=== PATIENT | female | born 1940 | race Caucasian/White ===

== ENCOUNTER 2016-10-06 16:22 | Inpatient (IN) | payer OTHER, MEDICARE ==
[~2016-10-06] VITALS: Ht 170.2 cm; Wt 57.6 kg
[~2016-10-06 16:22] MED LIST: AMLO5TAB4 PO; CALC667C PO; CEL20 PO; DOXY-4 PO; EST1 PO; FOLI-43 PO; HYDR-1189 PO; LANS30CA10 PO; LORA1TAB PO; NEPH PO; SACC250C3 PO
[2016-10-06 16:26] VITALS: BP_SYST 158
[2016-10-06] MEDS ORDERED: MORPHINE 2 MG/ML INJ. SYRINGE IVP ONE (16:45)
[2016-10-06] MEDS ORDERED: ONDANSETRON HCL 4 MG/2 ML VIAL IVP ONE (16:45)
[2016-10-06 17:03] LABS: BASOPHILS % (AUTO) 0.4 % (0.0-2.0); EOSINOPHILS # (AUTO) 0.1 K/uL (0.0-0.4); EOSINOPHILS % (AUTO) 1.4 % (0.0-4.0); HEMATOCRIT 30.7 % (36-48); HEMOGLOBIN 10.6 g/dL (12.0-16.0); LYMPHOCYTES # (AUTO) 0.8 K/uL (1.0-5.5); LYMPHOCYTES % (AUTO) 9.8 % (20.5-51.5); MEAN CORPUSCULAR HEMOGLOBIN 32 pg (27-31); MEAN CORPUSCULAR HGB CONC 35 % (32-36); MEAN CORPUSCULAR VOLUME 94 fL (79.0-98.0); MONOCYTES # (AUTO) 0.7 K/uL (0.0-1.0); MONOCYTES % (AUTO) 8.9 % (1.7-9.3); NEUTROPHILS # (AUTO) 6.3 K/uL (1.8-7.7); NEUTROPHILS % (AUTO) 79.5 % (40.0-70.0); PLATELET COUNT (AUTO) 194 K/uL (130-430); RED BLOOD CELL COUNT(AUTO) 3.27 MIL/uL (4.2-6.2); RED CELL DISTRIBUTION WIDTH 13.4 % (9.0-15.0); WHITE BLOOD COUNT (AUTO) 7.9 K/uL (4.8-10.8)
[2016-10-06 17:11] LABS: PROTHROMBIN TIME 11.1 SECS (9.5-12.5)
[2016-10-06 17:21] LABS: ANION GAP 10 (5-15); CHLORIDE 101 mmol/L (98-107); POTASSIUM 4.2 mmol/L (3.5-5.1); SODIUM SERUM 141 mmol/L (136-145)
[2016-10-06 17:22] LABS: CALCIUM 9.6 mg/dL (8.4-11.0); GLUCOSE 150 mg/dL (70-99); UREA NITROGEN, BLOOD 36 mg/dL (8-21)
[2016-10-06 17:27] LABS: ALBUMIN 3.6 g/dL (3.4-4.8); ASPARTATE AMINOTRANSFERASE 7 U/L (10-37); LIPASE 358 U/L (73-393); TOTAL BILIRUBIN 0.5 mg/dL (0.0-1.0); TOTAL PROTEIN, SERUM 7.4 g/dL (6.4-8.3)
[2016-10-06 17:42] LABS: ALANINE AMINOTRANSFERASE 11 U/L (12-78)
[2016-10-06] MEDS ORDERED: LANS15CA5 PO (18:04)
[2016-10-06] MEDS ORDERED: LORA0.5T PO (18:04)
[2016-10-06] MEDS ORDERED: AMLO5TAB4 PO (18:04)
[2016-10-06] MEDS ORDERED: CALC667C4 PO (18:04)
[2016-10-06] MEDS ORDERED: BUDE6HFA INH (18:04)
[2016-10-06] MEDS ORDERED: FOLI-43 PO (18:04)
[2016-10-06] MEDS ORDERED: PROP10DR2 EACH EYE (18:04)
[2016-10-06] MEDS ORDERED: CEL20 PO (18:04)
[2016-10-06] MEDS ORDERED: CLI.05P TD (18:04)
[2016-10-06] MEDS ORDERED: VIT1TABL44 PO (18:04)
[2016-10-06] MEDS ORDERED: SACC250C3 PO (18:04)
[2016-10-06] MEDS ORDERED: HYDR-3110 PO (18:04)
[2016-10-06] MEDS ORDERED: ASPIRIN 81 MG TAB.CHEW PO ONE (18:15)
[2016-10-06] MEDS ORDERED: metroNIDAZOLE 500 mg/NS 100 ML IV ONE (18:15)
[2016-10-06 18:45] VITALS: BP_SYST 151
[2016-10-06] MEDS ORDERED: ONDANSETRON HCL 4 MG/2 ML VIAL IVP PRN (19:45)
[2016-10-06] MEDS ORDERED: HYDROcodone/ACETAMIN 5-325 MG TAB (NORCO/ VICODIN) PO PRN (19:45)
[2016-10-06] MEDS ORDERED: POTASSIUM CHLORIDE 10 MEQ TAB.PRT.SR PO PRN (19:45)
[2016-10-06] MEDS ORDERED: MAGNESIUM SULFATE 50 ML IV PRN (19:45)
[2016-10-06] MEDS ORDERED: DOCUSATE SODIUM 100 MG CAPSULE PO PRN (19:45)
[2016-10-06] MEDS ORDERED: ACETAMINOPHEN 325 MG TABLET PO PRN (19:45)
[2016-10-06] MEDS ORDERED: ZOLPIDEM TARTRATE 5 MG TABLET PO PRN (19:45)
[2016-10-06] MEDS ORDERED: MORPHINE 2 MG/ML INJ. SYRINGE IVP PRN (19:45)
[2016-10-06 20:00] VITALS: BP_SYST 159
[2016-10-06] MEDS: CALCIUM ACETATE 667 MG CAP PO SCH (21:00)
[2016-10-06] MEDS ORDERED: CALCIUM ACETATE 667 MG CAP PO SCH (21:00)
[2016-10-06] MEDS: HEPARIN SODIUM,PORCINE 5000 UNITS/ML VIAL SUBCUT SCH (21:00)
[2016-10-06 21:27] LABS: BILIRUBIN,URINE NEGATIVE (NEGATIVE); CLARITY/URINE SL HAZY (CLEAR); COLOR,URINE YELLOW (YELLOW); GLUCOSE,URINE 1+ (NEGATIVE); KETONES,URINE NEGATIVE (NEGATIVE); LEUKOCYTE ESTERASE ,URINE NEGATIVE (NEGATIVE); NITRITE, URINE NEGATIVE (NEGATIVE); PH,URINE 8.5 (5.0-8.0); PROTEIN URINE 2+ (NEGATIVE); UROBILINOGEN,URINE 0.2 (0.2-1.0)
[2016-10-06 21:31] LABS: BLOOD, URINE TRACE (NEGATIVE)
[2016-10-06 21:41] LABS: BACTERIA,URINE RARE /HPF (None Seen); RBC,URINE 0-3 /HPF (0-3); WBC,URINE NONE SEEN /HPF (0-3)
[2016-10-07] VITALS: BP_SYST 135
[2016-10-07 04:00] VITALS: BP_SYST 128
[2016-10-07 06:45] LABS: ANION GAP 9 (5-15); CALCIUM 9.6 mg/dL (8.4-11.0); CHLORIDE 103 mmol/L (98-107); GLUCOSE 92 mg/dL (70-99); POTASSIUM 4.6 mmol/L (3.5-5.1); SODIUM SERUM 144 mmol/L (136-145); UREA NITROGEN, BLOOD 37 mg/dL (8-21)
[2016-10-07 06:49] LABS: BASOPHILS % (AUTO) 0.5 % (0.0-2.0); EOSINOPHILS # (AUTO) 0.2 K/uL (0.0-0.4); EOSINOPHILS % (AUTO) 4.2 % (0.0-4.0); HEMATOCRIT 28.3 % (36-48); HEMOGLOBIN 8.9 g/dL (12.0-16.0); LYMPHOCYTES # (AUTO) 0.9 K/uL (1.0-5.5); LYMPHOCYTES % (AUTO) 16.5 % (20.5-51.5); MEAN CORPUSCULAR HEMOGLOBIN 30 pg (27-31); MEAN CORPUSCULAR HGB CONC 31 % (32-36); MEAN CORPUSCULAR VOLUME 96 fL (79.0-98.0); MONOCYTES # (AUTO) 0.5 K/uL (0.0-1.0); MONOCYTES % (AUTO) 9.1 % (1.7-9.3); NEUTROPHILS % (AUTO) 69.7 % (40.0-70.0); PLATELET COUNT (AUTO) 152 K/uL (130-430); RED BLOOD CELL COUNT(AUTO) 2.96 MIL/uL (4.2-6.2); RED CELL DISTRIBUTION WIDTH 13.6 % (9.0-15.0); WHITE BLOOD COUNT (AUTO) 5.6 K/uL (4.8-10.8)
[2016-10-07 07:11] LABS: CREATININE 7.54 mg/dL (0.55-1.30)
[2016-10-07 08:10] VITALS: BP_SYST 147
[2016-10-07] MEDS: HEPARIN SODIUM,PORCINE 5000 UNITS/ML VIAL SUBCUT SCH ×2 (09:00→21:00)
[2016-10-07] MEDS: LORazepam 2 MG/ML VIAL IVP PRN (09:03)
[2016-10-07] MEDS: FLUTICASONE/VILANTEROL 1 EACH BLST.W.DEV INH SCH (09:04)
[2016-10-07] MEDS: CITALOPRAM HYDROBROMIDE 20 MG TABLET PO SCH (09:04)
[2016-10-07] MEDS: amLODIPine BESYLATE 5 MG TABLET PO SCH (09:04)
[2016-10-07] MEDS: CALCIUM ACETATE 667 MG CAP PO SCH ×3 (09:05→21:00)
[2016-10-07 13:25] VITALS: BP_SYST 119
[2016-10-07 15:29] VITALS: BP_SYST 136
[2016-10-07 20:19] VITALS: BP_SYST 135
[2016-10-08 06:35] LABS: BASOPHILS % (AUTO) 0.7 % (0.0-2.0); EOSINOPHILS # (AUTO) 0.2 K/uL (0.0-0.4); EOSINOPHILS % (AUTO) 4.1 % (0.0-4.0); HEMOGLOBIN 9.4 g/dL (12.0-16.0); LYMPHOCYTES % (AUTO) 17.8 % (20.5-51.5); MEAN CORPUSCULAR HEMOGLOBIN 31 pg (27-31); MEAN CORPUSCULAR HGB CONC 33 % (32-36); MEAN CORPUSCULAR VOLUME 96 fL (79.0-98.0); MONOCYTES # (AUTO) 0.5 K/uL (0.0-1.0); MONOCYTES % (AUTO) 8.4 % (1.7-9.3); NEUTROPHILS # (AUTO) 3.8 K/uL (1.8-7.7); PLATELET COUNT (AUTO) 162 K/uL (130-430); RED BLOOD CELL COUNT(AUTO) 3.03 MIL/uL (4.2-6.2); RED CELL DISTRIBUTION WIDTH 13.2 % (9.0-15.0); WHITE BLOOD COUNT (AUTO) 5.5 K/uL (4.8-10.8)
[2016-10-08 07:17] LABS: ANION GAP 7 (5-15); CALCIUM 10.2 mg/dL (8.4-11.0); CHLORIDE 100 mmol/L (98-107); CREATININE 6.38 mg/dL (0.55-1.30); GLUCOSE 87 mg/dL (70-99); POTASSIUM 4.5 mmol/L (3.5-5.1); SODIUM SERUM 139 mmol/L (136-145); UREA NITROGEN, BLOOD 32 mg/dL (8-21)
[2016-10-08 08:00] VITALS: BP_SYST 146
[2016-10-08] MEDS: CITALOPRAM HYDROBROMIDE 20 MG TABLET PO SCH (08:18)
[2016-10-08] MEDS: CALCIUM ACETATE 667 MG CAP PO SCH (08:18)
[2016-10-08] MEDS: amLODIPine BESYLATE 5 MG TABLET PO SCH (08:19)
[2016-10-08] MEDS: HEPARIN SODIUM,PORCINE 5000 UNITS/ML VIAL SUBCUT SCH (08:20)
[2016-10-08] MEDS: FLUTICASONE/VILANTEROL 1 EACH BLST.W.DEV INH SCH (08:20)
[2016-10-08] MEDS: LORazepam 2 MG/ML VIAL IVP PRN (08:25)
[2016-10-08 10:23] VITALS: BP_SYST 146
[2016-10-08 12:50] VITALS: BP_SYST 123
== END 2016-10-08 13:48 | disposition home or self-care (01) | DRG 682 ==
LOC: SED 16:22 → STU 18:13
PROVIDERS: ADMIT General Practice; ATTEND General Practice
PROC: 5A1D00Z (ICD-10-PCS; principal; 2016-10-07)
DX: I12.0 Hypertensive chronic kidney disease with stage 5 chronic kidney disease or end stage renal disease (principal); N18.6 End stage renal disease; M94.0 Chondrocostal junction syndrome [Tietze]; F32.9 Major depressive disorder, single episode, unspecified; J44.9 Chronic obstructive pulmonary disease, unspecified; K30 Functional dyspepsia; K57.90 Diverticulosis of intestine, part unspecified, without perforation or abscess without bleeding; D63.1 Anemia in chronic kidney disease; G89.29 Other chronic pain; N25.0 Renal osteodystrophy; M54.9 Dorsalgia, unspecified; Z99.2 Dependence on renal dialysis; Z87.891 Personal history of nicotine dependence; Z85.828 Personal history of other malignant neoplasm of skin; Z88.1 Allergy status to other antibiotic agents; Z85.3 Personal history of malignant neoplasm of breast; Z90.49 Acquired absence of other specified parts of digestive tract; Z90.710 Acquired absence of both cervix and uterus; Z88.8 Allergy status to other drugs, medicaments and biological substances; Z79.899 Other long term (current) drug therapy; Z83.6 Family history of other diseases of the respiratory system; Z80.9 Family history of malignant neoplasm, unspecified
CPT/HCPCS: 36415; 71010; 80048; 80053; 81000-TC; 83605; 83690-TC; 83735-TC; 84484; 85025; 85610-TC; 85730-TC; 87081; 90935; 93005; 93306; 96374; 96375; 97110-GP; 97116-GP; 97530-GP; 99285; J1644; J2060; J2270; J2405; J7030

== ENCOUNTER 2018-10-23 09:41 | Emergency (ER) | payer OTHER, MEDICARE ==
[~2018-10-23] VITALS: Ht 170.2 cm; Wt 54.4 kg
[~2018-10-23 09:41] MED LIST changes: +BUDE6HFA INH; +CALC667C4 PO; +CLI.05P TD; -DOXY-4 PO; +DOXY100C PO; +HYDR-3110 PO; +LANS15CA14 PO; -LANS30CA10 PO; +LANS30CA53 PO; +LORA0.5T PO; +PROP10DR2 EACH EYE; +VIT1TABL44 PO
[2018-10-23 09:45] VITALS: BP_SYST 152
[2018-10-23] MEDS ORDERED: TRANEXAMIC ACID 1,000 MG/10 ML VIAL IV ONE (10:00)
[2018-10-23 11:00] VITALS: BP_SYST 152
== END 2018-10-23 11:00 | disposition home or self-care (01) ==
LOC: SED 09:41
DX: S01.532A Puncture wound without foreign body of oral cavity, initial encounter (principal); I10 Essential (primary) hypertension; Z88.1 Allergy status to other antibiotic agents; Z88.8 Allergy status to other drugs, medicaments and biological substances; Z85.3 Personal history of malignant neoplasm of breast; Z90.710 Acquired absence of both cervix and uterus; X58.XXXA Exposure to other specified factors, initial encounter; Y93.89 Activity, other specified; Y92.89 Other specified places as the place of occurrence of the external cause; Y99.8 Other external cause status; Z79.899 Other long term (current) drug therapy
CPT/HCPCS: 96374; 99283; J3490

== ENCOUNTER 2019-02-07 06:04 | Emergency (ER) | payer OTHER, MEDICARE ==
[~2019-02-07] VITALS: Ht 170.2 cm; Wt 55.3 kg
[2019-02-07 06:08] VITALS: BP_SYST 97
--- NOTE | 2019-02-07 06:08 | NUR ---
Placed in room 2 . Placed on hall monitor, blood pressure machine and pulse oximeter. To gown for exam. Side rails up. Report given to DOUGLAS EISENBERG.
[2019-02-07] MEDS ORDERED: DIPH-TET-PERTUS Vaccine 0.5 ML VIAL (ADACEL) I.M. ONE (07:00)
[2019-02-07] MEDS ORDERED: MORPHINE 2 MG/ML INJ. SYRINGE IM ONE (07:00)
--- NOTE | 2019-02-07 07:20 | NUR ---
Pt presents to ED c/o head injury to R side of head this AM s/p mech fall w/o KO per report.Pt has LAC noted bleeding controlled.Pt reports MADSEN 12/24 denies N/V. Pt has no acute distress noted at this time.
--- NOTE | 2019-02-07 07:24 | NUR ---
ER Dr. Shook at bedside examining patient.
[2019-02-07 07:28] LABS: BASOPHILS # (AUTO) 0.1 K/uL (0.0-0.2); BASOPHILS % (AUTO) 1.2 % (0.0-2.0); EOSINOPHILS # (AUTO) 0.3 K/uL (0.0-0.4); EOSINOPHILS % (AUTO) 5.4 % (0.0-4.0); HEMATOCRIT 36.5 % (36-48); HEMOGLOBIN 12.1 g/dL (12.0-16.0); LYMPHOCYTES # (AUTO) 1.1 K/uL (1.0-5.5); LYMPHOCYTES % (AUTO) 17.7 % (20.5-51.5); MEAN CORPUSCULAR HEMOGLOBIN 34 pg (27-31); MEAN CORPUSCULAR HGB CONC 33 % (32-36); MEAN CORPUSCULAR VOLUME 103 fL (79.0-98.0); MONOCYTES # (AUTO) 0.6 K/uL (0.0-1.0); MONOCYTES % (AUTO) 9.6 % (1.7-9.3); NEUTROPHILS # (AUTO) 4.2 K/uL (1.8-7.7); NEUTROPHILS % (AUTO) 66.1 % (40.0-70.0); PLATELET COUNT (AUTO) 204 K/uL (130-430); RED BLOOD CELL COUNT(AUTO) 3.55 MIL/uL (4.2-6.2); WHITE BLOOD COUNT (AUTO) 6.4 K/uL (4.8-10.8)
--- NOTE | 2019-02-07 07:37 | NUR ---
Patient transported to radiology via gurney, accompanied by rad staff.
[2019-02-07 07:38] LABS: ANION GAP 10 (5-15); CALCIUM 8.7 mg/dL (8.4-11.0); CHLORIDE 99 mmol/L (98-107); CREATININE 6.24 mg/dL (0.55-1.30); GLUCOSE 92 mg/dL (70-99); POTASSIUM 4.1 mmol/L (3.5-5.1); SODIUM SERUM 140 mmol/L (136-145); UREA NITROGEN, BLOOD 38 mg/dL (8-21)
[2019-02-07 07:41] LABS: PROTHROMBIN TIME 10.5 SECS (9.5-12.5)
[2019-02-07 07:43] LABS: ALANINE AMINOTRANSFERASE 17 U/L (12-78); ALBUMIN 3.5 g/dL (3.4-4.8); ASPARTATE AMINOTRANSFERASE 9 U/L (10-37); TOTAL BILIRUBIN 0.5 mg/dL (0.0-1.0)
--- NOTE | 2019-02-07 07:45 | NUR ---
Returned from radiology, back to [facility].
--- NOTE | 2019-02-07 08:10 | NUR ---
Pt received wound repair from Sreedhar Harris. Pt tolerated well.
[2019-02-07 09:00] VITALS: BP_SYST 100
--- NOTE | 2019-02-07 09:00 | NUR ---
Patient given written and verbal discharge instructions and verbalizes understanding. ER MD discussed with patient the results and treatment provided. Patient in stable condition. ID arm band removed. NO Rx of given. Patient educated on pain management and to follow up with PMD. Pain Scale 0. Opportunity for questions provided and answered. Medication side effect fact sheet provided.
== END 2019-02-07 09:00 | disposition home or self-care (01) ==
LOC: SED 06:04
DX: S01.01XA Laceration without foreign body of scalp, initial encounter (principal); I10 Essential (primary) hypertension; Z88.1 Allergy status to other antibiotic agents; Z88.8 Allergy status to other drugs, medicaments and biological substances; Z79.899 Other long term (current) drug therapy; Z85.3 Personal history of malignant neoplasm of breast; Z99.2 Dependence on renal dialysis; W06.XXXA Fall from bed, initial encounter; Y93.89 Activity, other specified; Y92.89 Other specified places as the place of occurrence of the external cause; Y99.8 Other external cause status
CPT/HCPCS: 12002; 36415; 70450; 72125; 80053; 85025; 85610; 90471; 90715; 96372; 99284; J2270

== ENCOUNTER 2019-02-14 12:47 | Emergency (ER) | payer OTHER, MEDICARE ==
[~2019-02-14] VITALS: Ht 170.2 cm; Wt 60.8 kg
[2019-02-14 12:52] VITALS: BP_SYST 128
[2019-02-14 13:35] VITALS: BP_SYST 128
== END 2019-02-14 13:35 | disposition home or self-care (01) ==
LOC: SED 12:47
DX: S01.81XD Laceration without foreign body of other part of head, subsequent encounter (principal); I10 Essential (primary) hypertension; Z85.3 Personal history of malignant neoplasm of breast; Z99.2 Dependence on renal dialysis; Z88.1 Allergy status to other antibiotic agents; Z88.8 Allergy status to other drugs, medicaments and biological substances; Z79.899 Other long term (current) drug therapy; W06.XXXD Fall from bed, subsequent encounter
CPT/HCPCS: 99281

== ENCOUNTER 2019-09-04 12:28 | Emergency (ER) | payer OTHER, MEDICARE ==
[~2019-09-04] VITALS: Ht 170.2 cm; Wt 55.3 kg
--- NOTE | 2019-09-04 12:55 | NUR ---
PATIENT TO ER #7
[2019-09-04 12:57] VITALS: BP_SYST 152
--- NOTE | 2019-09-04 13:03 | NUR ---
PATIENT PRESENTS TO THE ER WITH 24 HOUR HX OF DYSPNEA AND LEFT SIDED BACK PAIN; NO TRAUMA, NO OTHER REMARKABLE S/S; PATIENT PLACED ON RELAY TESTER AND SAO2
--- NOTE | 2019-09-04 13:10 | NUR ---
ER at bedside examining patient.
[2019-09-04 13:44] LABS: BASOPHILS % (AUTO) 0.8 % (0.0-2.0); EOSINOPHILS # (AUTO) 0.2 K/uL (0.0-0.4); EOSINOPHILS % (AUTO) 3.5 % (0.0-4.0); HEMATOCRIT 30.8 % (36-48); HEMOGLOBIN 10.2 g/dL (12.0-16.0); LYMPHOCYTES # (AUTO) 0.7 K/uL (1.0-5.5); LYMPHOCYTES % (AUTO) 13.8 % (20.5-51.5); MEAN CORPUSCULAR HEMOGLOBIN 34 pg (27-31); MEAN CORPUSCULAR HGB CONC 33 % (32-36); MEAN CORPUSCULAR VOLUME 103 fL (79.0-98.0); MONOCYTES # (AUTO) 0.4 K/uL (0.0-1.0); MONOCYTES % (AUTO) 7.3 % (1.7-9.3); NEUTROPHILS # (AUTO) 3.9 K/uL (1.8-7.7); NEUTROPHILS % (AUTO) 74.6 % (40.0-70.0); PLATELET COUNT (AUTO) 167 K/uL (130-430); RED BLOOD CELL COUNT(AUTO) 2.99 MIL/uL (4.2-6.2); RED CELL DISTRIBUTION WIDTH 13.3 % (9.0-15.0); WHITE BLOOD COUNT (AUTO) 5.2 K/uL (4.8-10.8)
[2019-09-04 14:00] LABS: ANION GAP 15 (5-15); CALCIUM 8.4 mg/dL (8.4-11.0); CHLORIDE 98 mmol/L (98-107); GLUCOSE 85 mg/dL (70-99); POTASSIUM 4.8 mmol/L (3.5-5.1); SODIUM SERUM 138 mmol/L (136-145); UREA NITROGEN, BLOOD 44 mg/dL (8-21)
[2019-09-04 14:17] LABS: ALANINE AMINOTRANSFERASE 13 U/L (12-78); ALBUMIN 3.7 g/dL (3.4-4.8); ASPARTATE AMINOTRANSFERASE 6 U/L (10-37); TOTAL BILIRUBIN 0.5 mg/dL (0.0-1.0)
[2019-09-04 14:19] LABS: CREATININE 8.93 mg/dL (0.55-1.30)
--- NOTE | 2019-09-04 14:30 | NUR ---
RESTING IN BED, FRIEND AT BEDSIDE NO C/O AT THIS TIME.
[2019-09-04] MEDS ORDERED: AZITHROMYCIN 250 MG TABLET PO ONE (15:30)
--- NOTE | 2019-09-04 15:30 | NUR ---
NO C/O, PT COMFORTABLE IN [facility]
--- NOTE | 2019-09-04 16:32 | NUR ---
Patient given written and verbal discharge instructions and verbalizes understanding. ER MD discussed with patient the results and treatment provided. Patient in stable condition. ID arm band removed. IV catheter removed intact and dressing applied, no active bleeding. Rx of LEVAQUIN given. Patient educated on pain management and to follow up with PMD. Pain Scale 3. Opportunity for questions provided and answered. Medication side effect fact sheet provided.
[2019-09-04 16:48] VITALS: BP_SYST 152
== END 2019-09-04 16:32 | disposition home or self-care (01) ==
LOC: SED 12:28
DX: I12.9 Hypertensive chronic kidney disease with stage 1 through stage 4 chronic kidney disease, or unspecified chronic kidney disease (principal); N18.9 Chronic kidney disease, unspecified; Z85.3 Personal history of malignant neoplasm of breast; Z88.1 Allergy status to other antibiotic agents; Z88.8 Allergy status to other drugs, medicaments and biological substances; Z79.899 Other long term (current) drug therapy
CPT/HCPCS: 36415; 36600; 71045; 80053; 82803; 83605; 83880; 84484; 85025; 87040; 93005; 99285; Q0144

== ENCOUNTER 2019-11-07 13:26 | Emergency (ER) | payer OTHER, MEDICARE, SELFPAY ==
[~2019-11-07] VITALS: Ht 170.2 cm; Wt 54.4 kg
[2019-11-07 13:36] VITALS: BP_SYST 148
== END 2019-11-07 14:32 | disposition home or self-care (01) ==
LOC: EEVIPCON 13:26 → SED 13:26
DX: M54.89 Other dorsalgia (principal); I10 Essential (primary) hypertension; N28.9 Disorder of kidney and ureter, unspecified; Z79.899 Other long term (current) drug therapy; Z20.828 Contact with and (suspected) exposure to other viral communicable diseases
CPT/HCPCS: 71045; 99284; U0002

== ENCOUNTER 2020-01-29 13:11 | Emergency (ER) | payer OTHER, MEDICARE ==
[~2020-01-29] VITALS: Ht 170.2 cm; Wt 54.4 kg
[2020-01-29 13:34] VITALS: BP_SYST 148
--- NOTE | 2020-01-29 13:34 | NUR ---
Patient triaged and placed in waiting room. VSS and patient appears in no acute distress at this time. Accompanied by self, awaiting available bed, and MD notified of need for MSE.
--- NOTE | 2020-01-29 14:30 | NUR ---
Pt told admitting staff that she wants to go home. Ambulatory with steady gait out the front door.
== END 2020-01-29 14:30 | disposition left against medical advice (07) ==
LOC: SED 13:11
DX: R53.1 Weakness (principal); Z53.21 Procedure and treatment not carried out due to patient leaving prior to being seen by health care provider

== ENCOUNTER 2020-06-30 09:30 | Emergency (ER) | payer OTHER, MEDICARE ==
[~2020-06-30] VITALS: Ht 170.2 cm; Wt 53.1 kg
[~2020-06-30 09:30] MED LIST changes: -AMLO5TAB4 PO; -BUDE6HFA INH; -CALC667C PO; +CARV3.1246 PO; -CEL20 PO; -DOXY100C PO; -EST1 PO; +GABA-529 PO; -HYDR-3110 PO; -LANS15CA14 PO; -LANS30CA53 PO; +LIP40 PO; +NIFE60TA83 PO; -PROP10DR2 EACH EYE; +PROP1DRO4 OP; -SACC250C3 PO; +TRAM100T27 PO
[2020-06-30 09:37] VITALS: BP_SYST 130
--- NOTE | 2020-06-30 09:46 | NUR ---
Patient triaged and placed in waiting room. VSS and patient appears in no acute distress at this time. Awaiting available bed, and MD notified of need for MSE.
--- NOTE | 2020-06-30 09:47 | NUR ---
Patient came from home for evaluation of left index finger. She states that she has a cyst on the cuticle for the past 2 months that has been getting progressively worse. She presents with red,swollen finger with pain.
--- NOTE | 2020-06-30 10:00 | NUR ---
ER Dr. Serrano in waiting room examining patient.
[2020-06-30 10:15] VITALS: BP_SYST 130
--- NOTE | 2020-06-30 10:15 | NUR ---
Patient given written and verbal discharge instructions and verbalizes understanding. ER MD discussed with patient the results and treatment provided. Patient in stable condition. ID arm band removed. Rx of clindamycin given. Patient educated on pain management and to follow up with PMD. Pain Scale 10/10, MD is aware. Opportunity for questions provided and answered. Medication side effect fact sheet provided.
== END 2020-06-30 10:15 | disposition home or self-care (01) ==
LOC: SED 09:30
DX: L03.012 Cellulitis of left finger (principal); I10 Essential (primary) hypertension; N28.9 Disorder of kidney and ureter, unspecified; Z79.899 Other long term (current) drug therapy; Z79.4 Long term (current) use of insulin; Z88.1 Allergy status to other antibiotic agents
CPT/HCPCS: 99283

== ENCOUNTER 2021-01-26 18:31 | Inpatient (IN) | payer OTHER, MEDICARE, SELFPAY ==
[~2021-01-26] VITALS: Ht 170.2 cm; Wt 51.8 kg
[2021-01-26 18:31] VITALS: BP_SYST 118
[~2021-01-26 18:31] MED LIST changes: -HYDR-1189 PO; +HYDR-3919 PO
--- NOTE | 2021-01-26 18:37 | NUR ---
Placed in room 03 . Placed on monitoring engineer, blood pressure machine and pulse oximeter. To gown for exam. Side rails up.
--- NOTE | 2021-01-26 18:40 | NUR ---
Pt came to ER via BLS ambulance for generalized weakness pt states she has been shaky. Pt was able to ambulate to [facility] with standby assist, AO4, VSS, awaiting .
--- NOTE | 2021-01-26 18:48 | NUR ---
# 20 gauge angiocath placed to RAC. Use of asceptic technique. Opsite placed over site. Blood return noted. Blood for lab drawn from site. Flushed with 10 cc of normal saline. No evidence of infiltration noted. Patient tolerated well.
--- NOTE | 2021-01-26 19:02 | NUR ---
DR. ROBERTO AT BEDSIDE FOR EVALUATION.
[2021-01-26 19:15] LABS: BASOPHILS # (AUTO) 0.1 K/uL (0.0-0.2); EOSINOPHILS # (AUTO) 0.3 K/uL (0.0-0.4); EOSINOPHILS % (AUTO) 4.1 % (0.0-4.0); HEMATOCRIT 33.3 % (36-48); HEMOGLOBIN 10.7 g/dL (12.0-16.0); LYMPHOCYTES # (AUTO) 1.5 K/uL (1.0-5.5); LYMPHOCYTES % (AUTO) 18.7 % (20.5-51.5); MEAN CORPUSCULAR HEMOGLOBIN 33 pg (27-31); MEAN CORPUSCULAR HGB CONC 32 % (32-36); MEAN CORPUSCULAR VOLUME 102 fL (79.0-98.0); MONOCYTES # (AUTO) 0.4 K/uL (0.0-1.0); MONOCYTES % (AUTO) 4.5 % (1.7-9.3); NEUTROPHILS # (AUTO) 5.7 K/uL (1.8-7.7); NEUTROPHILS % (AUTO) 71.7 % (40.0-70.0); PLATELET COUNT (AUTO) 166 K/uL (130-430); RED BLOOD CELL COUNT(AUTO) 3.26 MIL/uL (4.2-6.2); RED CELL DISTRIBUTION WIDTH 14.7 % (9.0-15.0)
--- NOTE | 2021-01-26 19:15 | NUR ---
PORTABLE XRAY DONE AT THIS TIME.
[2021-01-26 19:18] LABS: ANION GAP 15 (5-15); CHLORIDE 102 mmol/L (98-107); GLUCOSE 139 mg/dL (70-99); SODIUM SERUM 146 mmol/L (136-145); UREA NITROGEN, BLOOD 66 mg/dL (8-21)
[2021-01-26 19:22] LABS: CALCIUM 5.2 mg/dL (8.4-11.0)
[2021-01-26 19:23] LABS: CREATININE 11.04 mg/dL (0.55-1.30); POTASSIUM 5.7 mmol/L (3.5-5.1)
[2021-01-26 19:26] LABS: ALANINE AMINOTRANSFERASE 13 U/L (12-78); TOTAL BILIRUBIN 0.6 mg/dL (0.0-1.0)
[2021-01-26 19:39] LABS: ASPARTATE AMINOTRANSFERASE 7 U/L (10-37)
[2021-01-26 19:40] LABS: PROTHROMBIN TIME 10.7 SECS (9.5-12.5)
[2021-01-26] MEDS ORDERED: CALCIUM GLUCONATE 1 GM/10 ML VIAL IVP ONE (20:30)
--- NOTE | 2021-01-26 21:23 | NUR ---
Patient will be admitted to care of DR. MALDONADO. Admitted to TELE unit. ROOM PENDING COVID TEST PENDING. Belongings list completed. Complete and up to date summary report printed. SBAR report to be given at bedside with opportunity for questions.
[2021-01-26] MEDS ORDERED: POTASSIUM CHLORIDE 20 MEQ TAB.PRT.SR PO PRN (21:45)
[2021-01-26] MEDS ORDERED: ONDANSETRON HCL 4 MG/2 ML VIAL IVP PRN (21:45)
[2021-01-26] MEDS ORDERED: MAGNESIUM SULFATE 50 ML IV PRN (21:45)
[2021-01-26] MEDS ORDERED: DOCUSATE SODIUM 100 MG CAPSULE PO PRN (21:45)
[2021-01-26] MEDS ORDERED: ACETAMINOPHEN 325 MG TABLET PO PRN (21:45)
[2021-01-26] MEDS ORDERED: LORazepam 2 MG/ML VIAL IVP PRN (21:45)
[2021-01-26] MEDS ORDERED: MUPIROCIN 2% TOPICAL OINTMENT 22 GM NS PRN (21:45)
[2021-01-26] MEDS ORDERED: ZOLPIDEM TARTRATE 5 MG TABLET PO PRN (21:45)
[2021-01-26] MEDS ORDERED: MORPHINE 2 MG/ML INJ. SYRINGE IVP PRN (21:45)
--- NOTE | 2021-01-26 21:52 | NUR ---
Patient's code status is FULL CODE paperwork completed and placed in chart.
[2021-01-26] MEDS ORDERED: ASA81 PO (22:10)
--- NOTE | 2021-01-26 22:11 | NUR ---
Medication reconciliation completed with information provided by PATIENT. Any prior medication reconciliation on file was reviewed and corrected.
--- NOTE | 2021-01-26 22:11 | NUR ---
Transfer to TELE via ACLS protocol. Licensed nurse present. IV present no signs or symptoms of infiltration.
--- NOTE | 2021-01-26 22:24 | NUR ---
ADMISSION: The patient, CANDIDA VENTURA, 80 y/o, F admitted by MARTY MALDONADO DO, was given written information regarding hospital policies, unit procedures and contact persons. Valuables were checked and pt was oriented to her room and surrounding.
[2021-01-26 22:45] VITALS: BP_SYST 119
[2021-01-27 00:02] VITALS: BP_SYST 132
--- NOTE | 2021-01-27 05:48 | NUR ---
Consultation Paged Reason for Consultation: Renal Failure Was consult called: Y Person who was notified: Arely Consulting Physician: Dr. Noonan (Dr. Ventura is business operations specialist) Ordering Physician: Dr. Patel
--- NOTE | 2021-01-27 06:25 | NUR ---
DR. PARK CALLED TO GIVE HEMODIALYSIS ORDER. HE STATED HE WILL CALL [facility] HIMSELF.
--- NOTE | 2021-01-27 06:45 | NUR ---
Nutrition Update Rickie Scale 17 noted. Pt admitted for Renal failure Diet: renal standard BMI: 18.4 kg/m2 RD to follow per nutrition care standards.
[2021-01-27 07:13] LABS: BASOPHILS % (AUTO) 0.9 % (0.0-2.0); EOSINOPHILS # (AUTO) 0.2 K/uL (0.0-0.4); EOSINOPHILS % (AUTO) 3.9 % (0.0-4.0); HEMATOCRIT 29.6 % (36-48); HEMOGLOBIN 9.8 g/dL (12.0-16.0); LYMPHOCYTES # (AUTO) 1.5 K/uL (1.0-5.5); LYMPHOCYTES % (AUTO) 28.7 % (20.5-51.5); MEAN CORPUSCULAR HEMOGLOBIN 33 pg (27-31); MEAN CORPUSCULAR HGB CONC 33 % (32-36); MEAN CORPUSCULAR VOLUME 100 fL (79.0-98.0); MONOCYTES # (AUTO) 0.3 K/uL (0.0-1.0); MONOCYTES % (AUTO) 6.1 % (1.7-9.3); NEUTROPHILS # (AUTO) 3.2 K/uL (1.8-7.7); NEUTROPHILS % (AUTO) 60.4 % (40.0-70.0); PLATELET COUNT (AUTO) 114 K/uL (130-430); RED BLOOD CELL COUNT(AUTO) 2.95 MIL/uL (4.2-6.2); RED CELL DISTRIBUTION WIDTH 14.5 % (9.0-15.0)
[2021-01-27 07:43] LABS: ANION GAP 15 (5-15); CHLORIDE 103 mmol/L (98-107); GLUCOSE 77 mg/dL (70-99); SODIUM SERUM 145 mmol/L (136-145); UREA NITROGEN, BLOOD 74 mg/dL (8-21)
--- NOTE | 2021-01-27 07:49 | NUR ---
rn opening note patient is awake and alert sitting up in bed eating breakfast.Report was endorsed by night nurse. patient educated svp marketing & communications at [employer], call light is with patient. patient shows no signs of any distress, breathing is equal and non labored. patient is close to nurses station. no other needs at this time
[2021-01-27 08:26] LABS: CALCIUM 5.2 mg/dL (8.4-11.0); CREATININE 11.65 mg/dL (0.55-1.30); POTASSIUM 6.6 mmol/L (3.5-5.1)
[2021-01-27 08:30] VITALS: BP_SYST 136
--- NOTE | 2021-01-27 08:51 | NUR ---
critical lab spoke with received orders to hemodialyzed stat. called supervised to call nurse to inform of stat order. also informed of critical labs
[2021-01-27] MEDS: CARVEDILOL 3.125 MG TABLET (COREG) PO SCH ×2 (09:00→22:37)
[2021-01-27] MEDS ORDERED: ESTRADIOL 0.05 MG/24 HR TD SCH (09:00)
[2021-01-27] MEDS: NIFEdipine 30 MG TAB.ER.24 PO SCH (09:00)
[2021-01-27] MEDS: HEPARIN SODIUM,PORCINE 5,000 UNITS/ML VIAL SUBCUT SCH ×2 (09:00→21:00)
[2021-01-27] MEDS: LORazepam 1 MG TABLET PO SCH (09:06)
[2021-01-27] MEDS: FOLIC ACID 1 MG TABLET PO SCH (09:06)
[2021-01-27] MEDS: NEPHROVITE, (FOLIC ACID/VITAMIN B COMP W-C 1 TAB) PO SCH (09:09)
[2021-01-27] MEDS: GABAPENTIN 100 MG CAPSULE PO SCH ×2 (09:09→22:36)
[2021-01-27] MEDS: CALCIUM ACETATE 667 MG CAP PO SCH ×3 (09:09→22:36)
[2021-01-27 09:52] LABS: WHITE BLOOD COUNT (AUTO) 5.3 K/uL (4.8-10.8)
--- NOTE | 2021-01-27 11:46 | NUR ---
Dietitian Recommendations *Recommend: continue Renal standard diet as ordered. *Recommend: add Nepro BID, Marc BID, Banatrol TID. Please see Nutritional Assessment for details VENTURA, RD
[2021-01-27 12:07] VITALS: BP_SYST 159
--- NOTE | 2021-01-27 12:18 | NUR ---
PAIN MEDICATION PATIENT IS COMPLAINS OF PAIN IN RIGHT LEG. PATIENT MEDICATED FOR PAIN. PATIENT GIVEN LUNCH AND IS EATING WHILE GETTING HER HEMODIALYSIS. PATIENT HAS ALL SAFETY PRECAUTIONS IN PLACE. CALL LIGHT IS WITH HER EDUCATED TO USE FOR ASSISTANCE. PATIENT HAS NO OTHER NEEDS AT THIS TIME.
[2021-01-27] MEDS ORDERED: CALCIUM GLUCONATE 1 GM in NS 100 ML IV ONE (14:00)
--- NOTE | 2021-01-27 14:15 | NUR ---
WOUND EVALUATION: Wound Consult received from Dr. Patel. Thank you, Dr. Patel, for the consult. Patient received in a Basin Bed with an Isoflex LIONEL mattress with low air loss therapy initiated, awake, alert, and oriented. Patient is unable to turn in bed independently. Rickie Score is a 17. Past Medical History: Lumbar Spine DJD, Hypertension, vitamin deficiency, Dyslipidemia, quit smoking over 30 years ago, had 2 Laminectomies, Hysterectomy, Left Upper Extremity surgery, left arm dialysis access, Left Breast Cancer, Neuropathy, Hypertension, End-Stage Renal Disease (Dialysis Mon/Weds/Fri),Thyroid Disease, abdominal related surgery. She is scheduled to have right hip replacement later this month at another hospital in [place]. Recent Labs: WBC 5.3, RBC 2.95, hemoglobin 9.8, hematocrit 29.6, potassium 6.6, BUN 74, creatinine 11.65, calcium 5.2, magnesium 2.7, PTT 25.4. No microbiology reports. Intrinsic factors that delay wound healing: End-Stage Renal Disease, Neuropathy, Diabetes Mellitus. Extrinsic factors that delay wound healing: Decreased mobility. Wound Assessment: 1. Sacral area: Stage II pressure ulcer, present on admission. Wound bed has 100% no odor, no drainage. Periwound intact. Surrounding tissue has scar tissue and blanchable redness. Wound measures 1.0 cm x 1.0 cm. Recommend: Cleanse wound with normal saline. Apply moisture barrier cream to the wound site. Cover site with Sacral foam dressing. Perform wound care daily, and as needed for dressing soiling or dislodgment 2. Left Heel: Blanchable redness, present on admission. 3. Right Heel: Blanchable redness, present on admission. Recommend: Elevate, offload and float bilateral heels with one pillow lengthwise under each extremity at all times. Also recommend: Reposition patient side to side only with pillow wedge pelvic tilt every 2 hours with pillow support and off-load pressure areas with pillows for pressure re-distribution. Elevate, offload and float bilateral heels with one pillow lengthwise under each extremity at all times. Perform skin care and monitor skin integrity Q shift. Use moisture barrier cream on buttocks and other moisture susceptible areas QID and as needed for soiling. Maintain patient on a low air-loss mattress.
--- NOTE | 2021-01-27 15:17 | NUR ---
MEDICATION PATIENTS SCHEDULED MEDICATION GIVEN PER ORDER. PATIENT IS SITTING IN CHAIR AT BEDSIDE. PATIENT AMBULATED WITH PT AND GAIT IS STABLE BUT STILL NEDS SUPERVISON. PATIENT EDUCATED HOTEL ATTENDANT LIGHT AND NOT TO GET ON WITH OUT US. PATIENT HAS CALL LIGHT WITH HER. PATIENT HAS NO OTHER COMPLAINTS AT THIS TIME.
[2021-01-27 16:04] VITALS: BP_SYST 152
--- NOTE | 2021-01-27 18:53 | NUR ---
rn closing note Patient is awake and alert sitting up in bed. patient educated director instructional material light call light is with patient. patient shows no signs of any distress, breathing is equal and non labored. Patient has no complaints a this time.
[2021-01-27 20:00] VITALS: BP_SYST 139
[2021-01-27] MEDS ORDERED: ATORVASTATIN 20 MG TABLET PO SCH (21:00)
[2021-01-28] VITALS: BP_SYST 140
--- NOTE | 2021-01-28 06:44 | NUR ---
PT IS RESTING COMFORTABLY IN BED. ALL PT'S NEEDS WERE ATTENDED TO. WILL ENDORSE TO DAY SHIFT NURSE.
[2021-01-28 06:52] LABS: BASOPHILS % (AUTO) 0.8 % (0.0-2.0); EOSINOPHILS # (AUTO) 0.2 K/uL (0.0-0.4); EOSINOPHILS % (AUTO) 3.9 % (0.0-4.0); HEMATOCRIT 32.2 % (36-48); HEMOGLOBIN 10.6 g/dL (12.0-16.0); LYMPHOCYTES # (AUTO) 1.3 K/uL (1.0-5.5); LYMPHOCYTES % (AUTO) 23.7 % (20.5-51.5); MEAN CORPUSCULAR HEMOGLOBIN 33 pg (27-31); MEAN CORPUSCULAR HGB CONC 33 % (32-36); MEAN CORPUSCULAR VOLUME 100 fL (79.0-98.0); MONOCYTES # (AUTO) 0.3 K/uL (0.0-1.0); MONOCYTES % (AUTO) 5.9 % (1.7-9.3); NEUTROPHILS # (AUTO) 3.6 K/uL (1.8-7.7); NEUTROPHILS % (AUTO) 65.7 % (40.0-70.0); PLATELET COUNT (AUTO) 112 K/uL (130-430); RED BLOOD CELL COUNT(AUTO) 3.22 MIL/uL (4.2-6.2); RED CELL DISTRIBUTION WIDTH 14.3 % (9.0-15.0); WHITE BLOOD COUNT (AUTO) 5.4 K/uL (4.8-10.8)
[2021-01-28 07:20] LABS: ANION GAP 14 (5-15); CHLORIDE 97 mmol/L (98-107); CREATININE 7.04 mg/dL (0.55-1.30); GLUCOSE 85 mg/dL (70-99); POTASSIUM 4.5 mmol/L (3.5-5.1); SODIUM SERUM 139 mmol/L (136-145); UREA NITROGEN, BLOOD 39 mg/dL (8-21)
[2021-01-28 08:00] VITALS: BP_SYST 112
[2021-01-28] MEDS: HEPARIN SODIUM,PORCINE 5,000 UNITS/ML VIAL SUBCUT SCH (09:00)
--- NOTE | 2021-01-28 09:01 | NUR ---
ATTENDING MD DR MALDONADO ORDERED [facility] ON DISCHARGE. NOTIFIED HEIDI PRATER.
--- NOTE | 2021-01-28 09:15 | NUR ---
CM note: Faxed HH referral to [facility] per dr. Patel ' s request. CM to f/u with the set up. Addendum: 01/28/21 at 1637 by Karthikeyan Morgan RN Per [facility], the pt is accepted . She will send nurse to visit pt tomorrow. -- Pt made aware. Disposition
[2021-01-28] MEDS: GABAPENTIN 100 MG CAPSULE PO SCH (09:39)
[2021-01-28] MEDS: NIFEdipine 30 MG TAB.ER.24 PO SCH (09:39)
[2021-01-28] MEDS: NEPHROVITE, (FOLIC ACID/VITAMIN B COMP W-C 1 TAB) PO SCH (09:40)
[2021-01-28] MEDS: CALCIUM ACETATE 667 MG CAP PO SCH (09:40)
[2021-01-28] MEDS: LORazepam 1 MG TABLET PO SCH (09:40)
[2021-01-28] MEDS: FOLIC ACID 1 MG TABLET PO SCH (09:41)
[2021-01-28] MEDS: CARVEDILOL 3.125 MG TABLET (COREG) PO SCH (09:41)
--- NOTE | 2021-01-28 10:32 | NUR ---
Billing Machine Operator VERIFY REP received a referral from Dr. Patel, patient is requesting assistance with living arrangements. VERIFY REP did a chart review and saw that HEIDI Carbajal made contact with patient and provided her with housing resources. VERIFY REP met with pt. bedside who was sitting upright watching t.v. Pt. was friendly, maintained eye contact and was amenable to this interview. Pt. stated she is being discharged today and will return to her home. She confirmed her friend is moving as soon as she can, but will wait for pt. to get her hip surgery later in the month. Patient continued by saying she has a lot of friends searching for a studio for her to rent. As a backup plan, pt. stated she has a friend who stated she can rent a room from him if she would like to. Pt. stated, "I am not going to be homeless, I will be fine." VERIFY REP asked if there was anything else she could assist her with to which pt. stated there was not. VERIFY REP told her she could have the Rn. call VERIFY REP if pt. needs anything else.
[2021-01-28 12:20] VITALS: BP_SYST 135
[2021-01-28 12:57] VITALS: BP_SYST 135
== END 2021-01-28 14:50 | disposition home health service (06) | DRG 640 ==
LOC: SED 18:31 → STU 21:18
PROVIDERS: ADMIT General Practice; ATTEND General Practice
PROC: 5A1D70Z Performance of Urinary Filtration, Intermittent, Less than 6 Hours Per Day (ICD-10-PCS; principal; 2021-01-27)
DX: E87.5 Hyperkalemia (principal); N18.6 End stage renal disease; N17.0 Acute kidney failure with tubular necrosis; I12.0 Hypertensive chronic kidney disease with stage 5 chronic kidney disease or end stage renal disease; E87.0 Hyperosmolality and hypernatremia; E87.8 Other disorders of electrolyte and fluid balance, not elsewhere classified; Z20.822 Contact with and (suspected) exposure to COVID-19; D63.8 Anemia in other chronic diseases classified elsewhere; E83.51 Hypocalcemia; Z96.641 Presence of right artificial hip joint; M16.11 Unilateral primary osteoarthritis, right hip; E78.5 Hyperlipidemia, unspecified; Z88.1 Allergy status to other antibiotic agents; Z88.8 Allergy status to other drugs, medicaments and biological substances; Z79.899 Other long term (current) drug therapy; Z87.891 Personal history of nicotine dependence; Z90.710 Acquired absence of both cervix and uterus; Z99.2 Dependence on renal dialysis; R42 Dizziness and giddiness
CPT/HCPCS: 36415; 71045; 80048; 80053; 83036; 83735; 84311; 84484; 85025; 85610-TC; 85730-TC; 87081; 90935; 93005; 96372; 97112-GP; 97116-GP; 97163-GP; 97530-GP; 99285; G0378; J0610; J1644; J2270

== ENCOUNTER 2021-07-03 12:23 | Emergency (ER) | payer OTHER, MEDICARE ==
[~2021-07-03] VITALS: Ht 170.2 cm; Wt 49.9 kg
[~2021-07-03 12:23] MED LIST changes: +ASA81 PO; -GABA-529 PO; -LORA1TAB PO; -TRAM100T27 PO; -VIT1TABL44 PO
[2021-07-03 12:46] VITALS: BP_SYST 147
--- NOTE | 2021-07-03 12:55 | NUR ---
PT PLACED IN BED 5.
--- NOTE | 2021-07-03 13:00 | NUR ---
MD BEDOLLA AT BEDSIDE ASSESSING PT.
[2021-07-03] MEDS ORDERED: HYDROcodone/ACETAMIN 10-325 MG TAB PO ONE (13:30)
--- NOTE | 2021-07-03 14:16 | NUR ---
PT HAS A NEGATIVE CT REPORT AND HAS SPOKEN WITH HER . PT HAS RELIEF OF PAIN FROM THE PAIN MEDICATION AND STATED SHE HAS ENOUGH AT HOME WELL.
--- NOTE | 2021-07-03 14:17 | NUR ---
Patient given written and verbal discharge instructions and verbalizes understanding. ER MD discussed with patient the results and treatment provided. Patient in stable condition. ID arm band removed. Rx of given. Patient educated on pain management and to follow up with PMD. Pain Scale 1/10. Opportunity for questions provided and answered. Medication side effect fact sheet provided.
[2021-07-03 14:18] VITALS: BP_SYST 136
[2021-07-05] MEDS ORDERED: FOLI0.8T42 PO (18:41)
[2021-07-05] MEDS ORDERED: ALBMDI INH (18:41)
[2021-07-05] MEDS ORDERED: FLUT1DIS BC (18:41)
== END 2021-07-03 14:17 | disposition home or self-care (01) ==
LOC: SED 12:23
DX: S09.90XA Unspecified injury of head, initial encounter (principal); I12.0 Hypertensive chronic kidney disease with stage 5 chronic kidney disease or end stage renal disease; N18.6 End stage renal disease; Z99.2 Dependence on renal dialysis; Z88.1 Allergy status to other antibiotic agents; Z79.899 Other long term (current) drug therapy; W18.39XA Other fall on same level, initial encounter; Y93.89 Activity, other specified; Y92.89 Other specified places as the place of occurrence of the external cause; Y99.8 Other external cause status
CPT/HCPCS: 70450-TC; 72125-TC; 76376; 99284